=== PATIENT | male | born 1975 | race Caucasian/White ===

== ENCOUNTER 2017-02-14 01:47 | Emergency (ER) | payer MEDICAID ==
[2017-02-14 02:16] VITALS: BP 165/95
[2017-02-14] MEDS ORDERED: Ketorolac 60 MG/2 ML SDV IM ONE (02:27)
[2017-02-14] MEDS ORDERED: methylPREDNISolone Sodium Succinate 125 MG/2 ML SDV IM ONE (02:28)
--- NOTE | 2017-02-14 02:32 | EDM.PDOC ---
[id number]: LOWER BACK PAIN Time Seen by Provider: 02/14/17 02:10 Source of Information: Reports: Patient History Limitations: Reports: No Limitations - History of Present Illness INITIAL COMMENTS - FREE TEXT/NARRATIVE: 41-year-old male with chronic back pain where he takes large amounts of narcotics was working out in the yard today, doing some painting and working on a ladder against was doing fine but tonight after sitting and watching TV for an hour he got up and developed a sharp pain in his lower back. He had difficulty getting his clothes off and on so came in to be treated. He has no incontinence or new symptoms radiating down his legs, it is mostly localized to the lower thoracic and upper lumbar area Duration: Hour(s): (Increased pain for a few hours) Associated Symptoms: Reports: No Other Symptoms Lower Back Pain Score (Numeric/FACES): 10 - Related Data Allergies Allergy/AdvReac Type Severity Reaction Status Date / Time No Known Allergies Allergy Verified 02/14/17 02:03 Home Meds: Home Meds ALPRAZolam [Xanax] 0.5 mg PO BEDTIME 02/14/17 [History] Gabapentin [Neurontin] 300 mg PO TID 02/14/17 [History] Hydrocodone/Acetaminophen [Lorcet Hd 10-325 mg Tablet] 2 tab PO TID 02/14/17 [ History] Testosterone Cypionate [Depo-Testosterone] 100 mg IM ASDIRECTED 02/14/17 [ History] oxyCODONE 5 mg PO QID 02/14/17 [History] Past Medical History HEENT History: Reports: Impaired Vision Cardiovascular History: Reports: Hypertension Genitourinary History: Reports: Renal Calculus Musculoskeletal History: Reports: Back Pain, Chronic, Fracture Neurological History: Reports: Concussion, Seizure Psychiatric History: Reports: Anxiety, Depression - Infectious Disease History Infectious Disease History: Reports: Chicken Pox - Past Surgical History Head Surgeries/Procedures: Reports: None Musculoskeletal Surgical History: Reports: Other (See Below) Other Musculoskeletal Surgeries/Procedures:: r arm plate Social & Family History - Tobacco Use Smoking Status *Q: Never Smoker Second Hand Smoke Exposure: No - Caffeine Use Caffeine Use: Reports: Soda - Recreational Drug Use Recreational Drug Use: No ED ROS GENERAL - Review of Systems Review Of Systems: See Below Constitutional: Denies: Fever, Chills Respiratory: Denies: Shortness of Breath Cardiovascular: Denies: Chest Pain GI/Abdominal: Denies: Abdominal Pain Musculoskeletal: Reports: Back Pain Skin: Reports: No Symptoms ED EXAM,LOWER BACK PAIN/INJURY - Physical Exam Exam: See Below Exam Limited By: No Limitations General Appearance: Alert, Mild Distress (Acting very uncomfortable, lying supine and not moving) Respiratory/Chest: No Respiratory Distress, Lungs Clear Back Exam: Paraspinal Tenderness (Patient does have paraspinal tenderness over the lower thoracic and upper lumbar spine) Course - Vital Signs Last Recorded V/S: Last Vital Signs Temp 96.8 F 02/14/17 02:15 Pulse 74 02/14/17 02:15 Resp 16 02/14/17 02:15 BP 165/95 H 02/14/17 02:15 Pulse Ox 96 02/14/17 02:15 - Orders/Labs/Meds Meds: Medications Discontinued Medications Generic Name Dose Route Start Last Admin Trade Name Juniorq PRN Reason Stop Dose Admin Ketorolac Tromethamine 60 mg 02/14/17 02:27 02/14/17 02:39 Toradol IM 02/14/17 02:28 60 mg ONETIME ONE Administration Methylprednisolone Sodium Succinate 125 mg 02/14/17 02:28 02/14/17 02:39 Solu-Medrol IM 02/14/17 02:29 125 mg ONETIME ONE Administration - Re-Assessments/Exams Free Text/Narrative Re-Assessment/Exam: 02/14/17 02:30 125 of Solu-Medrol and 60 mg of Toradol IM were given. Patient is already on 60 mg of hydrocodone a day as well as 20-40 mg of oxycodone, he can continue to take those medications as needed. I encouraged him to increase activity as tolerated over the next several days, and return if not improving satisfactorily. Departure - Departure Time of Disposition: 02:56 Disposition: Home, Self-Care 01 Condition: fair Clinical Impression: Acute exacerbation of chronic low back pain - Discharge Information Instructions: Back Pain, Adult Referrals: PCP,None [Primary Care Provider] - Forms: ED Department Discharge Care Plan Goals: Continue regular medications and increase activity as tolerated. Consider rechecking in 3-4 days if not improving satisfactorily or sooner if worsening or concerns.
== END 2017-02-14 02:56 | disposition home or self-care (01) ==
LOC: JP.ED 01:47
DX: M54.5 Low back pain (principal); H54.7 Unspecified visual loss; I10 Essential (primary) hypertension; Z79.899 Other long term (current) drug therapy
CPT/HCPCS: 96372; 99283; J1885; J2930

== ENCOUNTER 2017-12-11 18:46 | Emergency (ER) | payer MEDICAID ==
[2017-12-11 19:16] VITALS: BP 154/92
[2017-12-11] MEDS ORDERED: Ketorolac 60 MG/2 ML SDV IM ONE (19:27)
[2017-12-11] MEDS ORDERED: Lidocaine 5% 700 MG Patch TOP ONE (19:27)
--- NOTE | 2017-12-11 19:48 | EDM.PDOC ---
ED HPI GENERAL MEDICAL PROBLEM - General Chief Complaint: Back Pain or Injury Stated Complaint: BACK PAIN Time Seen by Provider: 12/11/17 19:25 Source of Information: Reports: Patient, Old Records, RN History Limitations: Reports: No Limitations - History of Present Illness INITIAL COMMENTS - FREE TEXT/NARRATIVE: 42 yo male with chronic low back pain experienced an exacerbation early this afternoon associated with bending over. Pain is directly over the lower lumbar spine. No bowel or bladder incontinence. No dysuria. Last pain medication was about 1445h today and included 2 of his hydrocodone and 2 of his oxycodone. Did not get relief so did not take any subsequent pain meds before coming to the ER. Onset: Today Onset Date: 12/11/17 Onset Time: 14:00 Duration: Hour(s): Location: Reports: Back (low) Quality: Reports: Ache Severity: Severe Improves with: Reports: None Worsens with: Reports: Movement Context: Reports: Other (Hx of chronic low back pain) Associated Symptoms: Reports: No Other Symptoms Treatments [employer]: Reports: Other (see below) (none since 1445h) Lumbar Pain Score (Numeric/FACES): 8 - Related Data Allergies Allergy/AdvReac Type Severity Reaction Status Date / Time No Known Allergies Allergy Verified 12/11/17 19:16 Home Meds: Home Meds ALPRAZolam [Xanax] 0.5 mg PO BEDTIME 02/14/17 [History] Gabapentin [Neurontin] 800 mg PO TID 02/14/17 [History] Hydrocodone/Acetaminophen [Lorcet Hd 10-325 mg Tablet] 2 tab PO TID 02/14/17 [ History] Testosterone Cypionate [Depo-Testosterone] 100 mg IM ASDIRECTED 02/14/17 [ History] oxyCODONE 5 mg PO QID 02/14/17 [History] Escitalopram [Lexapro] 10 mg PO DAILY 06/25/17 [History] Ketorolac [Toradol] 10 mg PO Q6H PRN 06/25/17 [History] Past Medical History HEENT History: Reports: Impaired Vision Cardiovascular History: Reports: Hypertension Genitourinary History: Reports: Renal Calculus Musculoskeletal History: Reports: Back Pain, Chronic, Fracture, Other (See Below ) Other Musculoskeletal History: Cervical and lumbar area. Neurological History: Reports: Concussion, Seizure Psychiatric History: Reports: Anxiety, Depression - Infectious Disease History Infectious Disease History: Reports: Chicken Pox - Past Surgical History Musculoskeletal Surgical History: Reports: Other (See Below) Other Musculoskeletal Surgeries/Procedures:: r arm plate Social & Family History - Tobacco Use Smoking Status *Q: Unknown Ever Smoked Second Hand Smoke Exposure: No - Caffeine Use Caffeine Use: Reports: Coffee - Recreational Drug Use Recreational Drug Use: No ED ROS GENERAL - Review of Systems Review Of Systems: See Below Constitutional: Reports: No Symptoms Respiratory: Reports: No Symptoms Cardiovascular: Reports: No Symptoms GI/Abdominal: Reports: No Symptoms : Reports: No Symptoms Musculoskeletal: Reports: Back Pain (low) Skin: Reports: No Symptoms Neurological: Reports: No Symptoms Psychiatric: Reports: No Symptoms ED EXAM,LOWER BACK PAIN/INJURY - Physical Exam Exam: See Below Exam Limited By: No Limitations General Appearance: Alert, WD/WN, Mild Distress, Obese Neck: Normal Inspection Respiratory/Chest: No Respiratory Distress, Lungs Clear Cardiovascular: Regular Rate, Rhythm, No Edema GI/Abdominal: Normal Bowel Sounds, Soft, Non-Tender Back Exam: Normal Inspection, Decreased Range of Motion, Vertebral Tenderness. No: CVA Tenderness (R), CVA Tenderness (L), Muscle Spasm, Paraspinal Tenderness Extremities: Normal Inspection, Non-Tender, No Pedal Edema Neurological: Alert, Normal Mood/Affect, Normal Dorsiflexion, CN II-XII Intact, No Motor/Sensory Deficits, Oriented x 3 Psychiatric: Normal Affect, Normal Mood Skin Exam: Warm, Dry, Intact, Normal Color, No Rash Course - Vital Signs Last Recorded V/S: Last Vital Signs Temp 36.0 C 12/11/17 19:12 Pulse 88 12/11/17 19:12 Resp 16 12/11/17 19:12 BP 154/92 H 12/11/17 19:12 Pulse Ox 95 12/11/17 19:12 - Orders/Labs/Meds Meds: Medications Discontinued Medications Generic Name Dose Route Start Last Admin Trade Name Juniorq PRN Reason Stop Dose Admin Hydromorphone HCl 2 mg 12/11/17 19:53 12/11/17 20:02 Dilaudid IM 12/11/17 19:54 2 mg ONETIME ONE Administration Ketorolac Tromethamine 60 mg 12/11/17 19:27 12/11/17 19:42 Toradol IM 12/11/17 19:28 60 mg ONETIME ONE Administration Lidocaine 700 mg 12/11/17 19:27 12/11/17 19:44 Lidoderm 5% TOP 12/11/17 19:28 700 mg ONETIME ONE Administration Departure - Departure Time of Disposition: 20:35 Disposition: Home, Self-Care 01 Condition: Fair Clinical Impression: Acute exacerbation of chronic low back pain - Discharge Information Referrals: Nick Rodriguez MD [Primary Care Provider] - Forms: ED Department Discharge
[2017-12-11] MEDS ORDERED: HYDROmorphone 1 MG/ML Syringe IM ONE (19:53)
== END 2017-12-11 20:45 | disposition home or self-care (01) ==
LOC: JP.ED 18:46
DX: G89.29 Other chronic pain (principal); M54.5 Low back pain; I10 Essential (primary) hypertension; Z79.899 Other long term (current) drug therapy
CPT/HCPCS: 96372; 99283-25; A9270-GY; J1170; J1885

== ENCOUNTER 2018-01-08 05:19 | Inpatient (IN) | payer MEDICAID ==
[2018-01-08] MEDS ORDERED: Scopolamine 1.5 MG Transdermal Patch TOP SCH (05:30)
[2018-01-08] MEDS ORDERED: Acetaminophen 500 MG Tab PO ONE (05:30)
[2018-01-08] MEDS ORDERED: Gabapentin 300 MG Cap PO ONE (05:30)
[2018-01-08] MEDS ORDERED: Lactated Ringers 1,000 ML IV SCH (06:00)
[2018-01-08] MEDS ORDERED: Bupivacaine 0.5%/EPINEPHrine 1:200,000 50 ML MDV ONE (06:45)
[2018-01-08] MEDS ORDERED: Povidone-Iodine 10% Soln 118.25 ML Bottle ONE (06:45)
[2018-01-08] MEDS ORDERED: Thrombin (Bovine) 5,000 Unit Kit ONE (06:45)
[2018-01-08] MEDS ORDERED: ceFAZolin 2 GM in Premix Bag 1 BAG IV ONE (07:00)
[2018-01-08] MEDS ORDERED: Succinylcholine 200 MG/10 ML MDV ONE (07:07)
[2018-01-08] MEDS ORDERED: Rocuronium 50 MG/5 ML Vial ONE ×2 (07:07→08:34)
[2018-01-08] MEDS ORDERED: Glycopyrrolate 0.2 MG/ML 5 ML MDV ONE (07:07)
[2018-01-08] MEDS ORDERED: Neostigmine Methylsulfate 1 MG/ML 5 ML Syringe ONE (07:07)
[2018-01-08] MEDS ORDERED: Dexamethasone 4 MG/ML SDV ONE (07:07)
[2018-01-08] MEDS ORDERED: Ondansetron 4 MG/2 ML SDV ONE (07:07)
[2018-01-08] MEDS ORDERED: Propofol 200 MG/20 ML SDV ONE (07:07)
[2018-01-08] MEDS ORDERED: Naloxone 0.4 MG/ML SDV IVPUSH PRN (07:24)
[2018-01-08] MEDS ORDERED: Tranexamic Acid 1,000 MG in Sodium Chloride 0.9% 50 ML IV SCH (07:30)
[2018-01-08] MEDS ORDERED: Ketamine 500 MG/5 ML MDV IV ONE (07:30)
[2018-01-08] MEDS ORDERED: Linezolid 600 MG in Premix Bag 1 BAG IV ONE (07:30)
[2018-01-08] MEDS ORDERED: Naloxone 0.4 MG/ML SDV IV PRN (07:32)
[2018-01-08] MEDS: HYDROmorphone/Normal Saline 15 MG/30 ML PCA IV PRN ×2 (07:44→21:09)
[2018-01-08] MEDS ORDERED: fentaNYL 250 MCG/5 ML SDV ONE (08:47)
[2018-01-08] MEDS ORDERED: Linezolid 200 MG/100 ML Bag IRR ONE (09:35)
[2018-01-08] MEDS ORDERED: Ondansetron 4 MG/2 ML SDV IV PRN (11:23)
[2018-01-08] MEDS ORDERED: hydrOXYzine HCl 100 MG/2 ML SDV IM PRN (11:24)
[2018-01-08] MEDS ORDERED: hydrOXYzine HCl 25 MG Tab PO PRN (11:24)
[2018-01-08] MEDS ORDERED: Dextrose 5%-Lactated Ringers 1,000 ML IV SCH (11:30)
[2018-01-08] MEDS ORDERED: Cyclobenzaprine 10 MG Tab PO PRN (11:34)
[2018-01-08] MEDS: Nicotine 21 MG/24 Hr Patch TRDERM SCH (12:50)
[2018-01-08] MEDS: VERIFY SCOP PATCH TOP SCH (12:51)
[2018-01-08] MEDS: Gabapentin 400 MG Cap PO SCH ×2 (13:02→20:10)
[2018-01-08] MEDS ORDERED: Pantoprazole 40 MG Vial IV SCH (14:00)
[2018-01-08] MEDS: ceFAZolin 2 GM in Premix Bag 1 BAG IV SCH ×2 (14:12→22:12)
[2018-01-08] MEDS: Dextrose 5%-Lactated Ringers 1,000 ML IV SCH (18:03)
[2018-01-08] MEDS ORDERED: PARoxetine 20 MG Tab PO SCH ×2 (21:00)
[2018-01-09] MEDS: ceFAZolin 2 GM in Premix Bag 1 BAG IV SCH (05:41)
[2018-01-09] MEDS ORDERED: HYDROmorphone 2 MG Tab PO PRN (07:20)
[2018-01-09] MEDS: Dextrose 5%-Lactated Ringers 1,000 ML IV SCH (07:24)
[2018-01-09] MEDS ORDERED: Lisinopril 20 MG Tab PO SCH (09:00)
[2018-01-09] MEDS ORDERED: Escitalopram 10 MG Tab PO SCH (09:00)
[2018-01-09] MEDS: Nicotine 21 MG/24 Hr Patch TRDERM SCH (09:01)
[2018-01-09] MEDS: Gabapentin 400 MG Cap PO SCH (09:03)
[2018-01-09] MEDS: VERIFY SCOP PATCH TOP SCH (09:03)
[2018-01-09 10:30] VITALS: BP 130/85
--- NOTE | 2018-01-10 03:31 | DISCH ---
ADMISSION DIAGNOSES: Low back pain, Methicillin-resistant Staphylococcus aureus, cervical stenosis of spinal canal, chronologically order is for degenerative joint disease, cervical spine, anxiety, convulsions, depression disorder, migraine headaches, sleep apnea and he uses CPAP, spinal stenosis, lumbar region with neurogenic claudication, umbilical hernia without obstruction. DISCHARGE DIAGNOSES: Rectal peritoneal vascular exploration and repair of incarcerated umbilical hernia for lumbar disk degenerative disease pain, anatomy unsafe for exposure of L4-L5 or L3-L4 and incarcerated umbilical hernia. Date of surgery 01/08/2018. HISTORY: Bhavin Renteria was scheduled for an ALIF procedure. After preoperative evaluation, discussion of possible risks and possible complications, he wished to proceed with surgical procedure. HOSPITAL COURSE: Due to anatomy, unable to expose the L3-4 and L4-5. The orthopedic procedure was not able to be done. He did have an incarcerated umbilical hernia and this was repaired. There were no surgical complications. On postop day #1, pain was controlled. Activity good. Vital signs stable. The patient was able to be discharged to home. PHYSICAL EXAMINATION: GENERAL: Bhavin Renteria is a 42-year-old male. He is alert and orientated. VITAL SIGNS: TPR 96.5, 62, 18, blood pressure 115/69. HEENT: Negative. NECK: Supple. HEART: Regular rate and rhythm. LUNGS: Clear. ABDOMEN: Dressings dry and intact. Abdominal binder is on. EXTREMITIES: Without peripheral edema. DISPOSITION: Discharged to home. CONDITION: Stable and improving. FOLLOWUP APPOINTMENT: Lizett Sofia PA-C, on 01/18/2018 at 10:00 a.m. HOME MEDICATIONS: Dilaudid 2 mg 1 to 2 every 4 hours p.r.n. pain, #10. He is on a pain contract and will resume Lorcet, hydrocodone, or oxycodone which he has at home. To resume home medication of Xanax 0.5 mg at bedtime, Neurontin 800 mg oral 5 times a day, lisinopril 20 mg daily, Paxil 30 mg oral daily, testosterone 100 mg IM weekly. DISCHARGE DIET: Usual diet as tolerated, drink 8-10 glasses of water a day. ACTIVITY: No lifting greater than 10 pounds for 4 weeks. DISCHARGE INSTRUCTIONS: Driving, do not drive on narcotic pain medication. Shower/bathing, may shower. Notify provider if any fever, increased pain, nausea, or vomiting. Wound incision, keep site clean and dry. Wear abdominal binder for 6 weeks and then as tolerated. Use incentive spirometer 10 times every hour while awake.
--- NOTE | 2018-01-14 14:59 | OR ---
DATE OF PROCEDURE: 01/08/2018 PREOPERATIVE DIAGNOSES: 1. Lumbar discogenic pain related to L4-L5 and L3-L4 levels. 2. Umbilical hernia. POSTOPERATIVE DIAGNOSES: 1. Lumbar discogenic pain related to an L4-L5 and L3-L4 levels. 2. Anatomy unsafe for exposure of L4-L5 and L3-L4. This was performed from an anterior approach. 3. Incarcerated umbilical hernia. OPERATIVE PROCEDURE: 1. Retroperitoneal vascular exploration (66269). 2. Repair of an incarcerated umbilical hernia (14445). ANESTHESIA: General. ASSISTANTS: Lizett Sofia PA-C and SHAUNA Garrett. INDICATIONS FOR PROCEDURE: This is a 42-year-old male presenting with a lumbar discogenic pain related to the L4-L5 and L3-L4 levels. Dr. Bebeto Moreno, the attending orthopedic surgeon felt that an anterior approach would be beneficial and this was planned. Potential risks of the procedure including bleeding, infection, vascular injury or massive bleeding to a potentially life-threatening degree was reviewed with the patient preoperatively as well as today. The possibility that the anatomy may be such that a safe exposure might not be possible was also reviewed with the patient, as well also noted an umbilical hernia which might not be entirely reducible, and would be repaired concurrently. Potential risks of bleeding, infection, recurrence of the hernia or such were likewise reviewed and the patient wishes to proceed. DETAILS OF PROCEDURE: The patient was taken to the operating room. After general endotracheal anesthesia was induced, a roll underneath the left knee was placed to take off pressure from the left psoas muscle. A Gaytan catheter was inserted and the abdomen prepped and draped. A vertical incision in the left lower quadrant overlying the midportion of the rectus muscle was made and carried down through the skin and subcutaneous tissue and through the rectus sheath. Initially, the rectus was retracted medially and the retroperitoneal space entered, initially laterally, then posteriorly. As one retracted the retroperitoneum, the ureter was swept upward with it. Despite numerous attempts, the patient's body habitus appeared to make exposure of the L4-L5 and L3-L4 displacement of an anterior or anterior lateral approach not amenable. It would be possible to get a L5-S1 exposure, but the entire levels appeared to be not safe from this vantage point. One additional approach was then taken with the retraction plane medial to the rectus muscle. This likewise revealed still an unsafe degree of soft tissue pressure, which made exposure of the intended disk spaces not safe. At that point, the situation was discussed with Dr. Bebeto Moreno and we decided to, from a safety standpoint, complete the procedure at that level, and set the patient up at some point for a lateral approach for his lumbar disk disease. After the area was irrigated with cefoxitin-containing saline solution, the anterior rectus sheath was approximated with #2 Vicryl stitch, subcutaneous tissue with some 4-0 Vicryl stitch. Dale-Hall drain was then placed through a stab wound superior to the incision and placed into the subcutaneous plane, and the skin closed with tanner. The drain was affixed with some 4-0 Vicryl stitch. Attention was then taken to the umbilical hernia. A transverse infraumbilical incision was made and carried down through the skin and subcutaneous tissue. This was carried down to the level of the anterior fascia and then dissected upward centering the area of herniation. This contained some incarcerated preperitoneal fat which was excised. The hernia defect itself was only around 3 mm. This was felt to be satisfactorily repairable without mesh. The hernia was then repaired with a series of #1 Vicryl sutures, placed in an orientation such that the closure would be transverse. Once these were all placed, they were then tied. Subcutaneous tissue was then approximated with some 4-0 Vicryl stitch and the skin with tanner. Dressing was applied. The patient was taken to the recovery room in satisfactory condition. Chang Moreno MD /[id number]
== END 2018-01-09 11:30 | disposition home or self-care (01) | DRG 988 ==
LOC: JP.SDS 05:19 → JP.SDSSCHI 05:19 → EDSTATUS 08:45 → JP.MS 10:00
PROVIDERS: ADMIT Surgery; ATTEND Surgery
PROC: 00JV3ZZ Inspection of Spinal Cord, Percutaneous Approach (ICD-10-PCS; principal; 2018-01-08)
PROC: 0WQF0ZZ Repair Abdominal Wall, Open Approach (ICD-10-PCS; 2018-01-08)
DX: M48.062 Spinal stenosis, lumbar region with neurogenic claudication (principal); K42.0 Umbilical hernia with obstruction, without gangrene; Z86.14 Personal history of Methicillin resistant Staphylococcus aureus infection; F41.9 Anxiety disorder, unspecified; F32.9 Major depressive disorder, single episode, unspecified; G47.30 Sleep apnea, unspecified; Z99.89 Dependence on other enabling machines and devices; H54.7 Unspecified visual loss; I10 Essential (primary) hypertension
CPT/HCPCS: 36415; 80048; 83735; 84100; 85027; 86850; 86900; 86901; 86920; 86922; 94762; A9270-GY; C9113; J0330; J0690; J1100; J1170; J2020; J2405; J2704; J2710; J3010; J3410; J3490; J7042; J7050; J7120